=== PATIENT | female | born 1995 | race Hispanic/Latino ===

== ENCOUNTER 2018-02-24 20:01 | Observation (INO) | payer MEDICAID, OTHER ==
[~2018-02-24] VITALS: Ht 154.9 cm; Wt 90.4 kg
[2018-02-24 21:02] LABS: BASOPHILS % (AUTO) 0.2 % (0.0-5.0); EOSINOPHILS % (AUTO) 1.1 % (0.0-8.0); HEMATOCRIT 41.7 % (36-48); LYMPHOCYTES % (AUTO) 7.9 % (21.0-51.0); MEAN CORPUSCULAR HEMOGLOBIN 28.2 pg (27.0-33.0); MEAN CORPUSCULAR HGB CONC 34.2 g/dL (32.0-36.0); MEAN CORPUSCULAR VOLUME 82.7 fL (80-100); NEUTROPHILS % (AUTO) 84.8 % (40.0-77.0); PLATELET COUNT (AUTO) 306 K/uL (130-400); RED BLOOD CELL COUNT(AUTO) 5.04 MIL/uL (4.00-5.50); RED CELL DISTRIBUTION WIDTH 14.9 % (11.0-15.5); WHITE BLOOD COUNT (AUTO) 15.1 K/uL (4.8-10.8)
[2018-02-24 21:14] LABS: ALBUMIN 3.9 g/dL (3.5-5.0); BILIRUBIN,TOTAL 0.8 mg/dL (0.2-1.0); CREATININE 0.9 mg/dL (0.5-1.5); TOTAL PROTEIN, SERUM 7.8 g/dL (6.0-8.3)
[2018-02-24 21:17] LABS: POTASSIUM 2.9 mmol/L (3.5-5.1)
[2018-02-24] MEDS ORDERED: TETANUS/DIPHTHERIA TOXOID [ADULT] 0.5 ML VIAL IM ONE (21:18)
[2018-02-24] MEDS ORDERED: POTASSIUM CHLORIDE 20 MEQ ERTAB PO ONE (21:22)
[2018-02-24] MEDS ORDERED: CEFTRIAXONE SODIUM 1 GM ONE (21:51)
[2018-02-24 22:30] VITALS: BP 126/77
[2018-02-24] MEDS ORDERED: POTASSIUM CHLORIDE 20MEQ/100ML 100 ML IV PRN (23:15)
[2018-02-24] MEDS ORDERED: FAMOTIDINE 20MG TAB 20 MG TAB PO SCH (23:15)
[2018-02-24] MEDS ORDERED: ACETAMINOPHEN 325 MG TAB PO PRN (23:15)
[2018-02-24] MEDS ORDERED: LIDOCAINE HCL-MPF 1% 2ML VIAL IVP PRN (23:15)
[2018-02-24] MEDS ORDERED: LORAZEPAM 0.5 MG TABLET PO PRN (23:15)
[2018-02-24] MEDS ORDERED: POTASSIUM CHLORIDE 10% ELIXIR 20 MEQ/15 ML UDCUP PO PRN (23:15)
[2018-02-24] MEDS ORDERED: ONDANSETRON HCL MDV 20ML 2 MG/ML VIAL IVP PRN (23:45)
[2018-02-24 23:50] LABS: APPEARANCE,URINE Cloudy (CLEAR); BILIRUBIN,URINE Negative (NEGATIVE); COLOR,URINE Dark Yellow (YELLOW); GLUCOSE, URINE (UA) Negative (NEGATIVE); KETONES,URINE Negative (NEGATIVE); LEUKOCYTE ESTERASE ,URINE Moderate (NEGATIVE); NITRATE,URINE Negative (NEGATIVE); OCCULT BLOOD,URINE Negative (NEGATIVE); PROTEIN,URINE Negative (NEGATIVE)
[2018-02-24 23:58] LABS: AMPHET/METH SCREEN,URINE NEGATIVE (NEGATIVE); BARBITURATE SCREEN, URINE NEGATIVE (NEGATIVE); BENZODIAZEPINES SCREEN,URINE POSITIVE (NEGATIVE); CANNABINOID SCREEN,URINE POSITIVE (NEGATIVE); COCAINE SCREEN,URINE POSITIVE (NEGATIVE); OPIATE SCREEN,URINE NEGATIVE (NEGATIVE); PHENCYCLIDINE SCREEN,URINE NEGATIVE (NEGATIVE)
[2018-02-25 00:06] LABS: BACTERIA,URINE Few /HPF (None Seen); MUCUS,URINE Moderate LPF (None Seen); RBC,URINE 0-1 /HPF (0-1); SQUAMOUS EPITHELIAL CELL,UR Moderate /HPF (0-2)
[2018-02-25] MEDS: SODIUM CHLORIDE 0.9% 1000ML 1,000 ML IV SCH ×2 (00:07→12:27)
[2018-02-25 03:00] VITALS: BP 116/59
[2018-02-25 04:01] LABS: HEMATOCRIT 35.6 % (36-48); MEAN CORPUSCULAR HEMOGLOBIN 29.2 pg (27.0-33.0); MEAN CORPUSCULAR HGB CONC 35.2 g/dL (32.0-36.0); MEAN CORPUSCULAR VOLUME 82.9 fL (80-100); PLATELET COUNT (AUTO) 284 K/uL (130-400); RED BLOOD CELL COUNT(AUTO) 4.29 MIL/uL (4.00-5.50); RED CELL DISTRIBUTION WIDTH 14.7 % (11.0-15.5); WHITE BLOOD COUNT (AUTO) 11.5 K/uL (4.8-10.8)
[2018-02-25 04:18] LABS: BILIRUBIN,TOTAL 0.4 mg/dL (0.2-1.0); CREATININE 0.7 mg/dL (0.5-1.5); POTASSIUM 3.1 mmol/L (3.5-5.1); TOTAL PROTEIN, SERUM 6.2 g/dL (6.0-8.3)
[2018-02-25] MEDS ORDERED: CLINDAMYCIN 300 MG/D5W 50 ML 50 ML IV SCH ×2 (06:00→09:00)
[2018-02-25 08:00] VITALS: BP 94/52
[2018-02-25] MEDS: POTASSIUM CHLORIDE 20 MEQ ERTAB PO PRN ×2 (09:18→12:56)
[2018-02-25] MEDS ORDERED: UNASYN 3GM+NS 100ML 100 ML IV SCH (11:15)
[2018-02-25 11:48] VITALS: BP 116/69
[2018-02-25 16:00] VITALS: BP 110/55
== END 2018-02-25 16:35 | disposition left against medical advice (07) ==
LOC: EDH 20:01 → EDHIP 20:02 → 3CH 22:12
PROVIDERS: ADMIT Internal Medicine Nephrology; ATTEND Internal Medicine Nephrology
DX: S61.431A Puncture wound without foreign body of right hand, initial encounter (principal); L03.011 Cellulitis of right finger; E87.6 Hypokalemia; D72.829 Elevated white blood cell count, unspecified; F31.9 Bipolar disorder, unspecified; F12.10 Cannabis abuse, uncomplicated; F17.210 Nicotine dependence, cigarettes, uncomplicated; Z59.0 Homelessness; Y04.1XXA Assault by human bite, initial encounter; Y92.009 Unspecified place in unspecified non-institutional (private) residence as the place of occurrence of the external cause; Y93.89 Activity, other specified; Y99.8 Other external cause status; Z23 Encounter for immunization
CPT/HCPCS: 36415 ×2; 73130; 76705; 80053 ×2; 80305; 81001; 83605; 84703; 85025; 85027; 85651; 90471; 90714; 96361; 96365; 96375; 99285; G0378 ×21; J0295; J0696; J3490 ×2; J7030

== ENCOUNTER 2018-02-26 08:37 | Emergency (ER) | payer MEDICAID, OTHER ==
[2018-02-26 09:08] LABS: HCG,QUAL RESULT NEGATIVE (NEGATIVE)
[2018-02-26 09:15] LABS: AMPHET/METH SCREEN,URINE NEGATIVE (NEGATIVE); BARBITURATE SCREEN, URINE NEGATIVE (NEGATIVE); BENZODIAZEPINES SCREEN,URINE POSITIVE (NEGATIVE); CANNABINOID SCREEN,URINE POSITIVE (NEGATIVE); COCAINE SCREEN,URINE POSITIVE (NEGATIVE); OPIATE SCREEN,URINE NEGATIVE (NEGATIVE); PHENCYCLIDINE SCREEN,URINE NEGATIVE (NEGATIVE)
[2018-02-26 09:22] LABS: BASOPHILS % (AUTO) 0.4 % (0.0-5.0); EOSINOPHILS % (AUTO) 1.6 % (0.0-8.0); HEMATOCRIT 34.8 % (36-48); LYMPHOCYTES % (AUTO) 26.6 % (21.0-51.0); MEAN CORPUSCULAR HEMOGLOBIN 27.9 pg (27.0-33.0); MEAN CORPUSCULAR HGB CONC 33.6 g/dL (32.0-36.0); MONOCYTES % (AUTO) 7.9 % (3.0-13.0); NEUTROPHILS % (AUTO) 63.5 % (40.0-77.0); PLATELET COUNT (AUTO) 291 K/uL (130-400); RED BLOOD CELL COUNT(AUTO) 4.19 MIL/uL (4.00-5.50); RED CELL DISTRIBUTION WIDTH 14.7 % (11.0-15.5); WHITE BLOOD COUNT (AUTO) 11.3 K/uL (4.8-10.8)
[2018-02-26 09:40] LABS: ALANINE AMINOTRANSFERASE 33 U/L (12-78); ALBUMIN 3.2 g/dL (3.5-5.0); ALCOHOL, BLOOD < 3 mg/dL (0-10); ASPARTATE AMINOTRANSFERASE 17 U/L (10-37); BILIRUBIN,TOTAL 0.3 mg/dL (0.2-1.0); CARBON DIOXIDE 26 mmol/L (21-32); CHLORIDE 108 mmol/L (101-111); CREATININE 0.6 mg/dL (0.5-1.5); GLOMERULAR FILTR. RATE CALC 135 mL/min (>60); GLUCOSE,RANDOM 98 mg/dL (70-105); SODIUM SERUM 141 mmol/L (136-145); TOTAL PROTEIN, SERUM 6.6 g/dL (6.0-8.3); UREA NITROGEN, BLOOD 5 mg/dL (7-18)
[2018-02-26] MEDS ORDERED: POTASSIUM BICARB/CIT AC 25 MEQ TABLET.EFF ONE (09:52)
[2018-02-26 10:09] LABS: ACETAMINOPHEN < 1 mcg/mL (10-30); SALICYLATE < 2.8 mg/dL (2.8-20.0)
== END 2018-02-26 13:13 | disposition home or self-care (01) ==
LOC: EDH 08:37
DX: R11.2 Nausea with vomiting, unspecified (principal); T50.5X5A Adverse effect of appetite depressants, initial encounter; F14.10 Cocaine abuse, uncomplicated; F12.10 Cannabis abuse, uncomplicated; F31.9 Bipolar disorder, unspecified; Z72.0 Tobacco use; Z98.890 Other specified postprocedural states; Y92.89 Other specified places as the place of occurrence of the external cause
CPT/HCPCS: 36415; 80053; 80305; 81025; 85025; 93005; 99285; G0480 ×2; G0481

== ENCOUNTER 2018-03-03 20:35 | Emergency (ER) | payer SELFPAY | END 2018-03-03 23:21 | disposition left against medical advice (07) | LOC: EDH 20:35 | DX: R10.12 Left upper quadrant pain (principal); Z53.21 Procedure and treatment not carried out due to patient leaving prior to being seen by health care provider ==

== ENCOUNTER 2018-03-04 12:55 | Emergency (ER) | payer MEDICAID, OTHER ==
[2018-03-04 14:03] LABS: APPEARANCE,URINE Cloudy (CLEAR); BILIRUBIN,URINE Negative (NEGATIVE); COLOR,URINE Yellow (YELLOW); GLUCOSE, URINE (UA) Negative (NEGATIVE); KETONES,URINE Negative (NEGATIVE); LEUKOCYTE ESTERASE ,URINE Trace (NEGATIVE); NITRATE,URINE Negative (NEGATIVE); OCCULT BLOOD,URINE Negative (NEGATIVE); PROTEIN,URINE Negative (NEGATIVE); UROBILINOGEN,URINE 0.2 mg/dL (0.2-1.0)
[2018-03-04] MEDS ORDERED: ACETAMINOPHEN 325 MG TAB ONE (14:06)
[2018-03-04] MEDS ORDERED: KETOROLAC TROMETHAMINE 30MG/ML ONE (14:06)
[2018-03-04 14:14] LABS: BACTERIA,URINE Rare /HPF (None Seen); SQUAMOUS EPITHELIAL CELL,UR Few /HPF (0-2)
[2018-03-04 14:21] LABS: BASOPHILS % (AUTO) 0.3 % (0.0-5.0); EOSINOPHILS % (AUTO) 0.9 % (0.0-8.0); HEMATOCRIT 40.2 % (36-48); LYMPHOCYTES % (AUTO) 8.6 % (21.0-51.0); MEAN CORPUSCULAR HGB CONC 33.6 g/dL (32.0-36.0); MEAN CORPUSCULAR VOLUME 83.4 fL (80-100); MONOCYTES % (AUTO) 6.8 % (3.0-13.0); NEUTROPHILS % (AUTO) 83.4 % (40.0-77.0); PLATELET COUNT (AUTO) 244 K/uL (130-400); RED BLOOD CELL COUNT(AUTO) 4.82 MIL/uL (4.00-5.50); RED CELL DISTRIBUTION WIDTH 14.8 % (11.0-15.5); WHITE BLOOD COUNT (AUTO) 19.5 K/uL (4.8-10.8)
[2018-03-04 14:36] LABS: CREATININE 0.6 mg/dL (0.5-1.5); POTASSIUM 3.5 mmol/L (3.5-5.1)
[2018-03-04 15:00] LABS: RAPID GROUP A STREP NEGATIVE (NEGATIVE)
== END 2018-03-04 15:31 | disposition home or self-care (01) ==
LOC: EDH 12:55
DX: K52.9 Noninfective gastroenteritis and colitis, unspecified (principal); Z33.1 Pregnant state, incidental; Z72.0 Tobacco use
CPT/HCPCS: 36415; 80048; 81001; 81025; 85025; 87804 ×2; 87880; 99284; J1885

== ENCOUNTER 2018-03-06 16:13 | Emergency (ER) | payer MEDICAID, OTHER | END 2018-03-06 16:59 | disposition home or self-care (01) | LOC: EDH 16:13 | DX: O26.891 Other specified pregnancy related conditions, first trimester (principal); G44.209 Tension-type headache, unspecified, not intractable; K08.89 Other specified disorders of teeth and supporting structures; F31.9 Bipolar disorder, unspecified; Z3A.01 Less than 8 weeks gestation of pregnancy; Z72.0 Tobacco use ==

== ENCOUNTER 2018-03-29 06:43 | Emergency (ER) | payer MEDICAID | END 2018-03-29 08:27 | disposition home or self-care (01) | LOC: EDH 06:43 | DX: F41.9 Anxiety disorder, unspecified (principal); R51 Headache; F31.9 Bipolar disorder, unspecified ==

== ENCOUNTER 2018-07-15 13:00 | Emergency (ER) | payer MEDICAID ==
[2018-07-15 13:34] LABS: APPEARANCE,URINE Cloudy (CLEAR); BILIRUBIN,URINE Moderate (NEGATIVE); COLOR,URINE Dark Yellow (YELLOW); GLUCOSE, URINE (UA) Negative (NEGATIVE); KETONES,URINE 15 mg/dL (NEGATIVE); LEUKOCYTE ESTERASE ,URINE Small (NEGATIVE); NITRATE,URINE Positive (NEGATIVE); OCCULT BLOOD,URINE Large (NEGATIVE); PROTEIN,URINE POS 2+ (NEGATIVE)
[2018-07-15 13:40] LABS: HCG,QUAL RESULT NEGATIVE (NEGATIVE)
[2018-07-15 13:50] LABS: BACTERIA,URINE Few /HPF (None Seen); CALCIUM OXALATE CRYSTALS,UR Few /LPF (None Seen); MUCUS,URINE Moderate LPF (None Seen); RBC,URINE 0-1 /HPF (0-1); SQUAMOUS EPITHELIAL CELL,UR Moderate /HPF (0-2)
== END 2018-07-15 13:50 | disposition home or self-care (01) ==
LOC: EDH 13:00
DX: N39.0 Urinary tract infection, site not specified (principal); F41.9 Anxiety disorder, unspecified; F31.9 Bipolar disorder, unspecified; Z72.0 Tobacco use
CPT/HCPCS: 81001; 81025

== ENCOUNTER 2019-04-12 20:40 | Emergency (ER) | payer MEDICAID, OTHER ==
[2019-04-12] MEDS ORDERED: IBUPROFEN 600 MG TABLET ONE (21:48)
== END 2019-04-12 22:35 | disposition home or self-care (01) ==
LOC: EDH 20:40
DX: S40.021A Contusion of right upper arm, initial encounter (principal); S20.221A Contusion of right back wall of thorax, initial encounter; F41.9 Anxiety disorder, unspecified; F31.9 Bipolar disorder, unspecified; W06.XXXA Fall from bed, initial encounter; Y93.89 Activity, other specified; Y92.89 Other specified places as the place of occurrence of the external cause; Y99.8 Other external cause status

== ENCOUNTER 2019-08-30 16:47 | Emergency (ER) | payer OTHER | END 2019-08-30 17:20 | disposition left against medical advice (07) | LOC: EDH 16:47 | DX: F41.9 Anxiety disorder, unspecified (principal); F31.9 Bipolar disorder, unspecified; F12.10 Cannabis abuse, uncomplicated; Z72.0 Tobacco use | CPT/HCPCS: 93005 ==

== ENCOUNTER 2019-10-30 20:38 | Emergency (ER) | payer OTHER ==
[2019-10-30 21:09] LABS: BASOPHILS % (AUTO) 0.3 % (0.0-5.0); LYMPHOCYTES % (AUTO) 20.6 % (21.0-51.0); MEAN CORPUSCULAR HEMOGLOBIN 29.1 pg (27.0-33.0); MEAN CORPUSCULAR HGB CONC 33.6 g/dL (32.0-36.0); MEAN CORPUSCULAR VOLUME 86.7 fL (80-100); MONOCYTES % (AUTO) 6.4 % (3.0-13.0); NEUTROPHILS % (AUTO) 70.2 % (40.0-77.0); PLATELET COUNT (AUTO) 279 K/uL (130-400); RED CELL DISTRIBUTION WIDTH 14.7 % (11.0-15.5); WHITE BLOOD COUNT (AUTO) 10.7 K/uL (4.8-10.8)
[2019-10-30 21:19] LABS: AMPHET/METH SCREEN,URINE POSITIVE (NEGATIVE); BARBITURATE SCREEN, URINE NEGATIVE (NEGATIVE); BENZODIAZEPINES SCREEN,URINE POSITIVE (NEGATIVE); CANNABINOID SCREEN,URINE POSITIVE (NEGATIVE); COCAINE SCREEN,URINE NEGATIVE (NEGATIVE); OPIATE SCREEN,URINE NEGATIVE (NEGATIVE); PHENCYCLIDINE SCREEN,URINE NEGATIVE (NEGATIVE)
[2019-10-30 21:30] LABS: CARBON DIOXIDE 25 mmol/L (21-32); CHLORIDE 105 mmol/L (101-111); CREATININE 0.5 mg/dL (0.5-1.5); GLOMERULAR FILTR. RATE CALC 166 mL/min (>60); GLUCOSE,RANDOM 77 mg/dL (70-105); POTASSIUM 3.5 mmol/L (3.5-5.1); SODIUM SERUM 141 mmol/L (136-145); UREA NITROGEN, BLOOD 9 mg/dL (7-18)
[2019-10-30 21:37] LABS: ALANINE AMINOTRANSFERASE 35 U/L (12-78); ALBUMIN 3.4 g/dL (3.5-5.0); ALCOHOL, BLOOD < 3 mg/dL (0-10); ASPARTATE AMINOTRANSFERASE 16 U/L (10-37); BILIRUBIN,TOTAL 0.3 mg/dL (0.2-1.0); TOTAL PROTEIN, SERUM 7.2 g/dL (6.0-8.3)
[2019-10-30 21:52] LABS: ACETAMINOPHEN < 1 mcg/mL (10-30); SALICYLATE < 2.8 mg/dL (2.8-20.0)
== END 2019-10-31 00:56 | disposition home or self-care (01) ==
LOC: EDH 20:38
DX: O26.891 Other specified pregnancy related conditions, first trimester (principal); R45.851 Suicidal ideations; F41.9 Anxiety disorder, unspecified; F32.9 Major depressive disorder, single episode, unspecified; Z3A.08 8 weeks gestation of pregnancy
CPT/HCPCS: 36415; 80053; 80305; 81025; 85025; 99284; G0480 ×2; G0481

== ENCOUNTER 2023-09-22 18:36 | Emergency (ER) | payer MEDICAID ==
[~2023-09-22] VITALS: Ht 152.4 cm; Wt 86.2 kg
[2023-09-22 18:50] VITALS: BP 120/74; PULSE 74; RESP 18; O2SAT 98
[2023-09-22] MEDS ORDERED: 0.9%NACL 1000ML 1,000 ML IV ONE (19:30)
== END 2023-09-22 20:48 | disposition left against medical advice (07) ==
LOC: EDH 18:36
DX: R10.9 Unspecified abdominal pain (principal); F10.129 Alcohol abuse with intoxication, unspecified; F41.9 Anxiety disorder, unspecified; F32.A Depression, unspecified